=== PATIENT | female | born 1950 | race Caucasian/White ===

== ENCOUNTER 2017-06-01 07:09 | Day surgery (SDC) | payer BC, MEDICARE ==
[2017-05-30 10:08] LABS: BASOPHILS % (AUTO) 0.6 % (0-1); EOSINOPHILS # (AUTO) 0.1 X10'3 (0-0.9); EOSINOPHILS % (AUTO) 1.4 % (0-6); LYMPHOCYTES # (AUTO) 1.4 X10'3 (1.1-4.8); LYMPHOCYTES % (AUTO) 29.4 % (21-51); MEAN CORPUSCULAR HGB CONC 33.4 % (33.0-36.5); MEAN CORPUSCULAR VOLUME 83.9 FL (78-98); MEAN PLATELET VOLUME 8.2 FL (7.4-10.4); MONOCYTES # (AUTO) 0.4 X10'3 (0-0.9); MONOCYTES % (AUTO) 8.8 % (2-12); NEUTROPHILS # (AUTO) 2.9 X10'3 (1.8-7.7); NEUTROPHILS % (AUTO) 59.8 % (42-75); PRE OP HEMATOCRIT 37.7 % (35.0-45.0); PRE OP HEMOGLOBIN 12.6 g/dL (12.0-16.0); PRE OP PLATELET COUNT 277 X10'3 (140-440); RED CELL DISTRIBUTION WIDTH 16.9 % (11.5-14.5)
[2017-05-30 10:28] LABS: CLARITY,URINE SLIGHTLY CLOUDY (Clear); COLOR,URINE YELLOW (Yellow); GLUCOSE, URINE NEGATIVE (Neg); KETONES,URINE NEGATIVE (Neg); LEUKOCYTE ESTERASE ,URINE NEGATIVE (Neg); NITRITES, URINE NEGATIVE (Neg); OCCULT BLOOD,URINE NEGATIVE (Neg); PH,URINE 6.5 (4.8-8.0); PROTEIN,URINE NEGATIVE (Neg); UROBILINOGEN,URINE 0.2 E.U/dL (0.2-1.0)
[2017-05-30 10:30] LABS: UA COLLECTION TYPE CLN CATCH MIDSTREAM
[2017-05-30 10:44] LABS: BACTERIA,URINE FEW /HPF (Neg); RBC,URINE 0-2 /HPF (0-2); WBC,URINE 0-4 /HPF (0-4)
[2017-05-30 10:45] LABS: MUCUS STRANDS FEW /LPF (Neg); SQUAMOUS EPITHELIAL CELL,UR MODERATE /LPF (FEW)
[2017-05-30 11:08] LABS: ALBUMIN 3.5 G/DL (3.4-5.0); ALBUMIN/GLOBULIN RATIO 1.1 (1.1-1.5); ALKALINE PHOSPHATASE 102 IU/L (46-116); BLOOD UREA NITROGEN 12 MG/DL (7-18); BUN/CREATININE RATIO 14.5 (6.6-38.0); CALCIUM 9.4 MG/DL (8.5-10.1); CHLORIDE 106 MMOL/L (99-107); CREATININE 0.83 MG/DL (0.40-0.90); PRE OP ALT 21 U/L (30-65); PRE OP ANION GAP 9 (8-16); PRE OP AST 14 U/L (10-37); PRE OP BILIRUB, TOTAL 0.4 MG/DL (0.0-1.0); PRE OP GLUCOSE 98 MG/DL (70-104); PRE OP POTASSIUM 3.6 MMOL/L (3.4-5.1); PRE OP SODIUM 145 MMOL/L (135-145); TOTAL CARBON DIOXIDE 29.8 MMOL/L (24-32); TOTAL PROTEIN 6.8 G/DL (6.4-8.2); eGFR 68 ML/MIN
[2017-06-01] VITALS (29 sets, daily range): BP systolic 120–152; BP diastolic 59–77
[~2017-06-01] VITALS: Ht 165.1 cm; Wt 80.5 kg
[~2017-06-01 07:09] MED LIST: BUPR100T6 PO; DULO-31 PO; ESZO3TAB38 PO; LISI1TAB11 PO; VERA120T2 PO; cefazolin/dext.iso 2gm/50ml 50 ML IV ONE; famotidine 20mg tablet PO ONE; ringers solution, lacted 1,000 ML IV SCH
[2017-06-01] MEDS ORDERED: BUPIVAcaine/PF 2.5 mg/ml (0.25%) 30ml vial ONE (09:33)
[2017-06-01] MEDS ORDERED: ceFAZolin 1000mg inj ONE (09:33)
[2017-06-01] MEDS ORDERED: LIDOcaine 2% (20mg/ml) 5ml vial ONE (09:43)
[2017-06-01] MEDS ORDERED: propofol inj 20 ML IV ONE (09:43)
[2017-06-01] MEDS ORDERED: rocuronium 10mg/ml inj IV ONE (09:43)
[2017-06-01] MEDS ORDERED: fentaNYL/PF 50MCG/1 ML 2ML syringe ONE ×3 (09:44→11:04)
[2017-06-01] MEDS ORDERED: sevoflurane 250ml liquid IH ONE (09:53)
[2017-06-01] MEDS ORDERED: midazolam 2 mg/2 ml injection ONE (09:59)
[2017-06-01] MEDS ORDERED: meperidine/PF 50mg/ml syringe IV PRN ×3 (11:35)
[2017-06-01] MEDS ORDERED: ringers solution, lacted 1,000 ML IV SCH (11:35)
[2017-06-01] MEDS ORDERED: morphine 4 MG/ML inj SYRINge IV PRN ×2 (11:35)
[2017-06-01] MEDS ORDERED: ondansetron/PF 4mg/2ml inj IV PRN (11:35)
[2017-06-01] MEDS ORDERED: proCHLORperazine 10 MG/2 ml inj IV PRN (11:35)
[2017-06-01] MEDS ORDERED: meperidine/PF 50mg/ml syringe ONE (11:47)
[2017-06-01] MEDS ORDERED: glycopyrrolate 0.2mg/ml inj ONE (11:59)
[2017-06-01] MEDS ORDERED: labetalol 5mg/ml 20ml inj. IV ONE (11:59)
[2017-06-01] MEDS ORDERED: ondansetron/PF 4mg/2ml inj ONE (11:59)
[2017-06-01] MEDS ORDERED: neostigmine methylsulfate 1 MG/ML 10ml vial ONE (11:59)
[2017-06-01] MEDS ORDERED: acetaminophen 1,000mg/100ml IV 100 ML IV ONE (12:15)
[2017-06-01] MEDS ORDERED: ketorolac tromethamine 15mg/ml inj. IV ONE (12:15)
[2017-06-01] MEDS ORDERED: HYDROmorphone 1 mg/ml syringe ONE (12:20)
[2017-06-01] MEDS ORDERED: HYDROcodone/acetaminophen 10/325mg tab PO ONE (13:45)
== END 2017-06-01 16:00 | disposition home or self-care (01) ==
LOC: PAS 07:09
PROVIDERS: ATTEND Surgery
DX: K43.2 Incisional hernia without obstruction or gangrene (principal); B15.9 Hepatitis A without hepatic coma; I10 Essential (primary) hypertension; Z90.49 Acquired absence of other specified parts of digestive tract; Z90.710 Acquired absence of both cervix and uterus; Z87.891 Personal history of nicotine dependence; Z79.899 Other long term (current) drug therapy; F41.8 Other specified anxiety disorders; Z85.038 Personal history of other malignant neoplasm of large intestine
CPT/HCPCS: 36415; 49654; 71046; 80053; 81001; 85025; C1713; C1758; C1781; J0131; J0690; J1170; J1885; J2001; J2175; J2250; J2405; J2704; J2710; J3010; J3490; J7120; A7000

== ENCOUNTER 2018-08-30 12:58 | Inpatient (IN) | payer BC, MEDICARE ==
[~2018-08-30] VITALS: Ht 165.1 cm; Wt 88.6 kg
[~2018-08-30 12:58] MED LIST changes: -ESZO3TAB38 PO; +ESZO3TAB66 PO; -cefazolin/dext.iso 2gm/50ml 50 ML IV ONE; -famotidine 20mg tablet PO ONE; -ringers solution, lacted 1,000 ML IV SCH
--- NOTE | 2018-08-30 15:52 | NUR ---
PT. IS STILL DOWN IN MRI SCAN.... TARGET SETTER CALLED THE ARMANDO ESTEVEZ AND TOLD HIM PT. IS HAVING AN ACUTE STROKE. ARMANDO ESTEVEZ CALLED ME AND WANTED A STROKE ALERT CALLED. AFTER CALLING LEVEL I STROKE. IT WAS TOLD TO ME BY TRIAGE AND CONFIRMED BY ARMANDO ESTEVEZ THAT THE PT. WOKE UP WITH THIS PAIN AND NUMBNESS AT 11:30. MRI NEEDS TO FINISH MRI SO THE PT. IS DOWN IN MRI SCAN.... THE REST OF THE TEAM IS UNABLE TO DRAW BLOOD OR DO VITALS ON THE PT. STROKE NURSE ASKED ME TO CANCEL CT SCAN AND STATES SHE IS GOING TO BE OUT OF THE 4 1/2 HOUR WINDOW AND IS A LEVEL II STROKE
--- NOTE | 2018-08-30 16:15 | NUR ---
TELE-NEURO HAS BEEN INITIATED
[2018-08-30 16:23] LABS: BASOPHILS # (AUTO) 0.1 X10'3 (0-0.2); EOSINOPHILS # (AUTO) 0.1 X10'3 (0-0.9); EOSINOPHILS % (AUTO) 1.5 % (0-6); HEMATOCRIT 40.8 % (35.0-45.0); HEMOGLOBIN 13.9 g/dl (12.0-16.0); LYMPHOCYTES # (AUTO) 1.2 X10'3 (1.1-4.8); LYMPHOCYTES % (AUTO) 23.2 % (21-51); MEAN CORPUSCULAR HEMOGLOBIN 30.4 PG (27.0-31.0); MEAN CORPUSCULAR VOLUME 89.5 FL (78-98); MEAN PLATELET VOLUME 8.5 FL (7.4-10.4); MONOCYTES # (AUTO) 0.5 X10'3 (0-0.9); MONOCYTES % (AUTO) 9.7 % (2-12); NEUTROPHILS # (AUTO) 3.5 X10'3 (1.8-7.7); NEUTROPHILS % (AUTO) 64.6 % (42-75); PLATELET COUNT 230 X10'3 (140-440); RED BLOOD COUNT 4.56 X10'6 (4.20-5.60); RED CELL DISTRIBUTION WIDTH 13.8 % (11.5-14.5); WHITE BLOOD COUNT 5.4 X10'3 (4.5-11.0)
[2018-08-30 16:37] LABS: ALANINE AMINOTRANSFERASE 26 U/L (12-78); ALBUMIN 3.3 G/DL (3.4-5.0); ALKALINE PHOSPHATASE 124 IU/L (46-116); ANION GAP 3 (8-16); ASPARTATE AMINO TRANSFERASE 13 U/L (10-37); BILIRUBIN,TOTAL 0.3 MG/DL (0.1-1.0); BLOOD UREA NITROGEN 17 MG/DL (7-18); BUN/CREATININE RATIO 18.7 (6.6-38.0); CALCIUM 9.1 MG/DL (8.5-10.1); CHLORIDE 106 MMOL/L (99-107); CREATININE 0.91 MG/DL (0.40-0.90); GLUCOSE 93 MG/DL (70-104); POTASSIUM 3.9 MMOL/L (3.5-5.1); SODIUM 140 MMOL/L (135-145); TOTAL CARBON DIOXIDE 31.2 MMOL/L (24-32); TOTAL PROTEIN 6.5 G/DL (6.4-8.2); eGFR 61 ML/MIN
[2018-08-30 16:40] LABS: TROPONIN I < 0.04 NG/ML (0.0-0.05)
[2018-08-30 16:53] LABS: PARTIAL THROMBOPLASTIN TIME 29 SECONDS (22-32)
[2018-08-30] MEDS ORDERED: normal saline 1000ml 1,000 ML IV ONE (17:05)
[2018-08-30] MEDS ORDERED: aspirin 81mg tab.chew PO ONE (17:10)
[2018-08-30] MEDS ORDERED: iohexol 350MG/ML 100ml bottle IV ONE (17:16)
[2018-08-30] MEDS ORDERED: mag hydrox/Alum hydrox/simeth 30ml oral suspension PO PRN (17:40)
[2018-08-30] MEDS ORDERED: magnesium hydroxide 30ml (MOM) UD suspension PO PRN (17:40)
[2018-08-30] MEDS ORDERED: ondansetron/PF 4mg/2ml inj IV PRN (17:40)
[2018-08-30] MEDS ORDERED: potassium Cl 20 mEq SR tablet PO PRN (17:40)
[2018-08-30] MEDS ORDERED: bisacodyl 10mg suppository rectal RC PRN (17:40)
[2018-08-30] MEDS ORDERED: potassium CL 10mEq/100ml bag 100 ML IV PRN (17:40)
[2018-08-30] MEDS ORDERED: magnesium Cl slow-release 64mg tablet PO PRN (17:40)
[2018-08-30] MEDS ORDERED: acetaminophen 325mg tablet PO PRN ×2 (17:40)
[2018-08-30] MEDS ORDERED: magnesium 4gm in 100ml NS 100 ML IV PRN (17:40)
[2018-08-30] MEDS ORDERED: magnesium 2GM in 50ml NS 50 ML IV PRN (17:40)
[2018-08-30] MEDS ORDERED: potassium Cl 40MEQ/NS 500ml 500 ML IV PRN (17:40)
[2018-08-30] MEDS ORDERED: HYDROcodone/acetaminophen 5mg/325mg tablet PO PRN (17:40)
[2018-08-30] MEDS ORDERED: metoclopramide 5 mg/ml inj IV PRN (17:40)
--- NOTE | 2018-08-30 18:30 | NUR ---
called to give report to ortho, nurse unavailable they will call us back
[2018-08-30 18:40] LABS: PHOSPHORUS 2.9 MG/DL (2.3-4.5)
--- NOTE | 2018-08-30 18:41 | NUR ---
patient report received from david wilkes.
--- NOTE | 2018-08-30 20:00 | NUR ---
patient arrived on unit via gurney. patient alert and oriented x4. vitals stable. right hand weakness. fluids running. belongings at bedside.
[2018-08-30] MEDS ORDERED: temazepam 15mg capsule PO PRN (21:00)
[2018-08-30] MEDS: docusate sod 100mg capsule PO SCH (21:19)
[2018-08-30] MEDS: normal saline 1000ml 1,000 ML IV SCH (21:20)
[2018-08-30 22:00] VITALS: BP 143/95
[2018-08-31 02:00] VITALS: BP 149/85
[2018-08-31] MEDS: normal saline 1000ml 1,000 ML IV SCH (04:10)
[2018-08-31 06:00] VITALS: BP 136/74
--- NOTE | 2018-08-31 06:10 | NUR ---
Patient in room ORTHO 4023. I have received report from JENNIFER LINN and had the opportunity to ask questions and assume patient care.
--- NOTE | 2018-08-31 06:13 | NUR ---
patient report given to lesli wilkes.
[2018-08-31 06:45] LABS: HEMATOCRIT 39.3 % (35.0-45.0); HEMOGLOBIN 13.1 g/dl (12.0-16.0); MEAN CORPUSCULAR HGB CONC 33.3 g/dL (33.0-36.5); MEAN PLATELET VOLUME 8.7 FL (7.4-10.4); PLATELET COUNT 205 X10'3 (140-440); RED BLOOD COUNT 4.36 X10'6 (4.20-5.60); RED CELL DISTRIBUTION WIDTH 13.8 % (11.5-14.5)
[2018-08-31 07:04] LABS: ANION GAP 6 (8-16); BLOOD UREA NITROGEN 14 MG/DL (7-18); BUN/CREATININE RATIO 16.9 (6.6-38.0); CALCIUM 9.2 MG/DL (8.5-10.1); CHLORIDE 109 MMOL/L (99-107); CHOL/HDL RATIO 3.5 (0.00-4.99); CHOLESTEROL 156 MG/DL (0-200); CREATININE 0.83 MG/DL (0.40-0.90); GLUCOSE 90 MG/DL (70-104); HDL CHOLESTEROL 45 MG/DL (35-60); LDL CHOLESTEROL 98 MG/DL (50-100); MAGNESIUM 1.9 MG/DL (1.5-2.4); PHOSPHORUS 3.3 MG/DL (2.3-4.5); POTASSIUM 3.4 MMOL/L (3.5-5.1); SODIUM 142 MMOL/L (135-145); TOTAL CARBON DIOXIDE 26.7 MMOL/L (24-32); TRIGLYCERIDES 88 MG/DL (20-135); eGFR 68 ML/MIN
[2018-08-31] MEDS ORDERED: buPROPion SR 100mg tab PO SCH (08:00)
[2018-08-31] MEDS ORDERED: atorvastatin 20mg tablet PO SCH (08:00)
[2018-08-31] MEDS ORDERED: duloxetine 30mg CAPSULE.DR PO SCH (08:00)
[2018-08-31] MEDS ORDERED: K and/or MAG REPLACEMENT MC SCH (08:00)
[2018-08-31] MEDS ORDERED: aspirin 325mg tablet PO SCH (08:30)
[2018-08-31] MEDS ORDERED: aspirin 81mg tablet.DR PO SCH (08:30)
[2018-08-31] MEDS: docusate sod 100mg capsule PO SCH (08:35)
[2018-08-31] MEDS: potassium Cl 20 mEq SR tablet PO PRN ×2 (08:37→12:51)
[2018-08-31 09:46] LABS: HEMOGLOBIN A1C 5.3 % (4.5-6.2)
[2018-08-31 10:00] VITALS: BP 131/71
[2018-08-31] MEDS ORDERED: ATOR20TA66 PO (13:34)
[2018-08-31] MEDS ORDERED: CLOP75TA15 PO (13:34)
[2018-08-31] MEDS ORDERED: ASPI-1071 PO (13:34)
[2018-08-31 14:00] VITALS: BP 142/78
== END 2018-08-31 16:25 | disposition home or self-care (01) | DRG 66 ==
LOC: ER 12:58 → ORTHO 4S 17:50
PROVIDERS: ADMIT Family Medicine; ATTEND Internal Medicine
PROC: B3251ZZ Computerized Tomography (CT Scan) of Bilateral Common Carotid Arteries using Low Osmolar Contrast (ICD-10-PCS; principal; 2018-08-30)
PROC: B32G1ZZ Computerized Tomography (CT Scan) of Bilateral Vertebral Arteries using Low Osmolar Contrast (ICD-10-PCS; 2018-08-30)
PROC: B32R1ZZ Computerized Tomography (CT Scan) of Intracranial Arteries using Low Osmolar Contrast (ICD-10-PCS; 2018-08-30)
PROC: B3281ZZ Computerized Tomography (CT Scan) of Bilateral Internal Carotid Arteries using Low Osmolar Contrast (ICD-10-PCS; 2018-08-30)
DX: I63.40 Cerebral infarction due to embolism of unspecified cerebral artery (principal); E78.5 Hyperlipidemia, unspecified; F41.1 Generalized anxiety disorder; I10 Essential (primary) hypertension; K57.90 Diverticulosis of intestine, part unspecified, without perforation or abscess without bleeding; Z82.3 Family history of stroke; Z82.49 Family history of ischemic heart disease and other diseases of the circulatory system; Z85.038 Personal history of other malignant neoplasm of large intestine; Z86.61 Personal history of infections of the central nervous system; Z90.49 Acquired absence of other specified parts of digestive tract; Z90.710 Acquired absence of both cervix and uterus; Z98.51 Tubal ligation status; Z87.891 Personal history of nicotine dependence
CPT/HCPCS: 36415; 70496; 70498; 70544; 70551; 71045; 72141; 80048; 80053; 80061; 83036; 83735; 84100; 84443; 84484; 85025; 85027; 85610; 85730; 87070; 92508; 92616; 93005; 93306; 97110; 97162; 99285; G0378; J7030; Q9967

== ENCOUNTER 2020-08-28 09:06 | Day surgery (SDC) | payer MEDICARE ==
[2020-08-28] VITALS (16 sets, daily range): BP systolic 90–141; BP diastolic 52–84
[~2020-08-28] VITALS: Ht 165.1 cm; Wt 102.7 kg
[~2020-08-28 09:06] MED LIST changes: +ALPR-624 PO; +APIX5TAB3 PO; +ASPI-611 PO; +ATOR80TA PO; +BUPR100T16 PO; -BUPR100T6 PO; +CARV-50 PO; +CIPR-202 PO; -ESZO3TAB66 PO; +FURO-149 PO; -LISI1TAB11 PO; +LISI20TA28 PO; +METR-159 PO; -VERA120T2 PO
[2020-08-28] MEDS ORDERED: normal saline 1000ml 1,000 ML IV SCH (09:35)
[2020-08-28] MEDS ORDERED: ATOR40TA PO (09:53)
[2020-08-28] MEDS ORDERED: CARV25TA PO (09:53)
[2020-08-28] MEDS ORDERED: lisinopril PO (09:53)
[2020-08-28] MEDS ORDERED: Vitamin D PO (09:53)
[2020-08-28] MEDS ORDERED: APIX5TAB3 PO (09:53)
[2020-08-28 10:07] LABS: BASOPHILS % (AUTO) 0.8 % (0-1); EOSINOPHILS # (AUTO) 0.1 X10'3 (0-0.9); EOSINOPHILS % (AUTO) 2.1 % (0-6); HEMATOCRIT 39.4 % (35.0-45.0); HEMOGLOBIN 13.2 g/dl (12.0-16.0); LYMPHOCYTES # (AUTO) 1.3 X10'3 (1.1-4.8); LYMPHOCYTES % (AUTO) 22.8 % (21-51); MEAN CORPUSCULAR HEMOGLOBIN 30.9 PG (27.0-31.0); MEAN CORPUSCULAR HGB CONC 33.5 g/dL (33.0-36.5); MEAN CORPUSCULAR VOLUME 92.4 FL (78-98); MEAN PLATELET VOLUME 8.4 FL (7.4-10.4); MONOCYTES # (AUTO) 0.6 X10'3 (0-0.9); MONOCYTES % (AUTO) 11.1 % (2-12); NEUTROPHILS # (AUTO) 3.5 X10'3 (1.8-7.7); NEUTROPHILS % (AUTO) 63.2 % (42-75); PLATELET COUNT 230 X10'3 (140-440); RED BLOOD COUNT 4.27 X10'6 (4.20-5.60); RED CELL DISTRIBUTION WIDTH 14.7 % (11.5-14.5); WHITE BLOOD COUNT 5.5 X10'3 (4.5-11.0)
[2020-08-28] MEDS ORDERED: gelatin sponge, absorbable (Gelfoam 12-7MM) sponge TP ONE (11:36)
[2020-08-28] MEDS ORDERED: midazolam 1 mg/ML 2ml injection ONE (11:36)
[2020-08-28] MEDS ORDERED: fentaNYL/PF 50MCG/1 ML 2ML syringe ONE (11:36)
[2020-08-28] MEDS ORDERED: HYDROcodone/acetaminophen 5mg/325mg tablet PO PRN ×2 (13:00)
[2020-08-29] MEDS ORDERED: LISI1TAB51 PO (17:08)
[2020-08-29] MEDS ORDERED: CHOL100025 PO (18:05)
[2020-08-29] MEDS ORDERED: BUPR-317 PO (18:05)
== END 2020-08-28 15:35 | disposition home or self-care (01) ==
LOC: SSTAY O 09:06
PROVIDERS: ATTEND Radiology Vascular & Interventional Radiology
DX: R91.1 Solitary pulmonary nodule (principal); C78.01 Secondary malignant neoplasm of right lung; C18.7 Malignant neoplasm of sigmoid colon; Z79.01 Long term (current) use of anticoagulants; Z79.82 Long term (current) use of aspirin; Z79.899 Other long term (current) drug therapy; Z98.51 Tubal ligation status; Z98.890 Other specified postprocedural states; Z72.89 Other problems related to lifestyle
CPT/HCPCS: 32408; 32553; 36415; 71045; 77012; 85025; 85610; 88341; 88342; 99152; 99153; J2250; J3010; 88305

== ENCOUNTER 2020-11-03 16:09 | Emergency (ER) | payer MEDICARE ==
[~2020-11-03] VITALS: Ht 165.1 cm; Wt 90.9 kg
[~2020-11-03 16:09] MED LIST changes: -ALPR-624 PO; +ATOR40TA PO; -ATOR80TA PO; +BUPR-317 PO; -BUPR100T16 PO; -CARV-50 PO; +CARV25TA PO; +CHOL100025 PO; -CIPR-202 PO; -FURO-149 PO; +LISI1TAB51 PO; -LISI20TA28 PO; -METR-159 PO
[2020-11-03 16:12] VITALS: BP 103/63
[2020-11-03 17:14] LABS: BASOPHILS % (AUTO) 0.3 % (0-1); EOSINOPHILS # (AUTO) 0.1 X10'3 (0-0.9); HEMATOCRIT 35.5 % (35.0-45.0); LYMPHOCYTES # (AUTO) 1.3 X10'3 (1.1-4.8); LYMPHOCYTES % (AUTO) 12.8 % (21-51); MEAN CORPUSCULAR HEMOGLOBIN 30.5 PG (27.0-31.0); MEAN CORPUSCULAR HGB CONC 33.8 g/dL (33.0-36.5); MEAN CORPUSCULAR VOLUME 90.3 FL (78-98); MONOCYTES # (AUTO) 0.9 X10'3 (0-0.9); MONOCYTES % (AUTO) 8.8 % (2-12); NEUTROPHILS % (AUTO) 77.1 % (42-75); PLATELET COUNT 314 X10'3 (140-440); RED BLOOD COUNT 3.93 X10'6 (4.20-5.60); RED CELL DISTRIBUTION WIDTH 15.4 % (11.5-14.5); WHITE BLOOD COUNT 10.4 X10'3 (4.5-11.0)
[2020-11-03 17:40] LABS: ALANINE AMINOTRANSFERASE 21 U/L (12-78); ALBUMIN 2.8 G/DL (3.4-5.0); ALBUMIN/GLOBULIN RATIO 0.9 (1.1-1.5); ALKALINE PHOSPHATASE 149 IU/L (46-116); ANION GAP 11 (8-16); ASPARTATE AMINO TRANSFERASE 14 U/L (10-37); BILIRUBIN,TOTAL 0.3 MG/DL (0.1-1.0); BLOOD UREA NITROGEN 10 MG/DL (7-18); BUN/CREATININE RATIO 6.9 (6.6-38.0); CALCIUM 8.4 MG/DL (8.5-10.1); CHLORIDE 103 MMOL/L (99-107); CREATININE 1.45 MG/DL (0.40-0.90); GLUCOSE 133 MG/DL (70-104); SODIUM 142 MMOL/L (135-145); TOTAL CARBON DIOXIDE 27.9 MMOL/L (24-32); TOTAL PROTEIN 5.9 G/DL (6.4-8.2); eGFR 35 ML/MIN
[2020-11-03 17:49] LABS: POTASSIUM 2.8 MMOL/L (3.5-5.1)
[2020-11-03 18:05] LABS: PLATELET ESTIMATE NORMAL; TOTAL CELLS COUNTED 100
[2020-11-03 18:08] LABS: STOMATOCYTES 1+
== END 2020-11-03 19:39 | disposition left against medical advice (07) ==
LOC: ER 16:09
DX: R53.1 Weakness (principal); Z53.21 Procedure and treatment not carried out due to patient leaving prior to being seen by health care provider
CPT/HCPCS: 36415; 80053; 83880; 84484; 85007; 85025

== ENCOUNTER 2020-11-10 06:30 | Day surgery (SDC) | payer MEDICARE ==
[~2020-11-10] VITALS: Ht 165.1 cm; Wt 93.2 kg
[2020-11-10] MEDS ORDERED: normal saline 1000ml 1,000 ML IV SCH (07:15)
[2020-11-10 07:18] VITALS: BP 102/58
[2020-11-10] MEDS ORDERED: ALPR-624 PO (07:24)
[2020-11-10] MEDS ORDERED: cefazolin/dext.iso 2gm/100ml 100 ML IV ONE (08:25)
[2020-11-10] MEDS ORDERED: LIDOcaine 1%/PF 5ML 10 MG/ML VIAL ONE (08:32)
[2020-11-10] MEDS ORDERED: heparin 1,000unit/ml 10ml vial 10 ML ONE (08:33)
[2020-11-10] MEDS ORDERED: midazolam 1 mg/ML 2ml injection ONE ×2 (08:33→09:33)
[2020-11-10] MEDS ORDERED: fentaNYL/PF 50MCG/1 ML 2ML syringe ONE ×2 (08:33→09:33)
[2020-11-10] MEDS ORDERED: heparin sodium, porcine/PF 100unit/ml 5ML syringe ONE (08:38)
[2020-11-10] MEDS ORDERED: LIDOcaine 1% W/epiNEPHrine 1:200,000 10ml vial ONE ×2 (09:12→09:13)
[2020-11-10 10:15] VITALS: BP 108/57
[2020-11-10 10:30] VITALS: BP 108/57
[2020-11-10 10:45] VITALS: BP 109/70
[2020-11-10 11:00] VITALS: BP 115/52
[2020-11-10 11:30] VITALS: BP 101/47
== END 2020-11-10 11:30 | disposition home or self-care (01) ==
LOC: SSTAY O 06:30
PROVIDERS: ATTEND Preventive Medicine Aerospace Medicine
DX: T82.528A Displacement of other cardiac and vascular devices and implants, initial encounter (principal); C18.7 Malignant neoplasm of sigmoid colon; C78.02 Secondary malignant neoplasm of left lung; C78.01 Secondary malignant neoplasm of right lung; F17.210 Nicotine dependence, cigarettes, uncomplicated; I11.0 Hypertensive heart disease with heart failure; I50.9 Heart failure, unspecified; Z79.899 Other long term (current) drug therapy; Z79.82 Long term (current) use of aspirin; Z98.51 Tubal ligation status; Z90.710 Acquired absence of both cervix and uterus; Z85.038 Personal history of other malignant neoplasm of large intestine; Z86.19 Personal history of other infectious and parasitic diseases; Z98.890 Other specified postprocedural states; Y83.8 Other surgical procedures as the cause of abnormal reaction of the patient, or of later complication, without mention of misadventure at the time of the procedure; Y92.89 Other specified places as the place of occurrence of the external cause
CPT/HCPCS: 36582; 76937; 77001; 99152; 99153; C1769; C1788; C1894; J1642; J1644; J2250; J3010; 36561

== ENCOUNTER 2024-03-13 11:19 | Outpatient (CLI) | payer MEDICARE ==
[~2024-03-13 11:19] MED LIST changes: +ALPR-624 PO; -BUPR-317 PO; +BUPR-561 PO
== END 2024-03-13 23:59 | disposition home or self-care (01) ==
LOC: RAD 11:19
PROVIDERS: ATTEND Radiology Radiation Oncology
DX: R13.10 Dysphagia, unspecified (principal); C78.02 Secondary malignant neoplasm of left lung; C78.01 Secondary malignant neoplasm of right lung; K21.9 Gastro-esophageal reflux disease without esophagitis; Z79.899 Other long term (current) drug therapy; Z98.890 Other specified postprocedural states
CPT/HCPCS: 74230